=== PATIENT | male | born 1965 | race Caucasian/White ===

== ENCOUNTER 2017-05-31 16:36 | Inpatient (IN) ==
[2017-05-31] MEDS ORDERED: NS 1,000 ML ONE (17:18)
[2017-05-31 17:22] LABS: HEMATOCRIT 56.5 % (42.0-52.0); HEMOGLOBIN 19.9 g/dL (14.0-18.0); IMM GRAN# 0.05 X1000 (0.0-0.04); IMM GRAN% 0.2 % (0.0-0.5); LYMPH# 0.88 X1000 (1.2-3.4); LYMPH% 4.1 % (20.5-51.1); MANUAL DIFF NEEDED? YES; MCH 28.5 PG (27-31); MCHC 35.2 g/dL (33-37); MCV 80.9 FL (81-99); MONO# 1.39 X1000 (0.11-0.59); MONO% 6.4 % (1.7-9.3); NEUT% 89.3 % (42.2-75.2); PLT 375 X1000 (130-400); RBC 6.98 XMIL (4.7-6.1)
[2017-05-31] MEDS ORDERED: NS 1,000 ML IV ONE (17:22)
[2017-05-31 17:42] LABS: URINE CULTURE NEEDED? NO; URINE MICRO REVIEW NEEDED? NO; URINE SOURCE CLEAN CATCH
[2017-05-31 17:45] LABS: LYMPHS 3 % (21-51); MONO 1 % (1-9)
[2017-05-31 17:45] LABS: BILIRUBIN URINE NEGATIVE (NEGATIVE); BLOOD URINE NEGATIVE (NEGATIVE); COLOR YELLOW; GLUCOSE URINE >1000 mg/dL (NEGATIVE); LEUKOCYTES URINE NEGATIVE (NEGATIVE); NITRITE URINE NEGATIVE (NEGATIVE); PH URINE 5.5; PROTEIN URINE TRACE mg/dL (NEGATIVE); SP GRAVITY URINE 1.026; TURBIDITY URINE CLEAR (CLEAR); UR EPITHELIAL CELLS <10 /HPF (<10); URINE BACTERIA NEGATIVE /HPF; URINE RBC <10 /HPF (<10); URINE WBC <10 /HPF (<10); UROBILINOGEN URINE NORMAL (NORMAL)
[2017-05-31] MEDS ORDERED: NS 2,500 ML IV ONE (17:54)
[2017-05-31 17:56] LABS: UR AMPHETAMINES QUAL NONE DETECTED (NONE DETECT); UR BARBITUATES QUAL NONE DETECTED (NONE DETECT); UR BENZODIAZEPIN QUAL NONE DETECTED (NONE DETECT); UR CANNABINOIDS QUAL NONE DETECTED (NONE DETECT); UR COCAINE QUAL NONE DETECTED (NONE DETECT); UR METHADONE QUAL NONE DETECTED (NONE DETECT); UR OPIATES QUAL NONE DETECTED (NONE DETECT); UR OXYCODONE QUAL PRESUMPTIVE POSITIVE (NONE DETECT); UR PCP QUAL NONE DETECTED (NONE DETECT)
[2017-05-31] MEDS ORDERED: ZOSYN 3.375 GM in NS 50 ML IV ONE (17:56)
[2017-05-31 17:58] LABS: AGAP 32; ALBUMIN 4.2 g/dL (3.5-5.0); ALKALINE PHOSPHATASE 108 U/L (32-122); BUN 57 mg/dL (8-22); CALCIUM 9.4 mg/dL (8.8-10.2); CHLORIDE 81 mmol/L (98-107); COSMO 302; GOT 10 U/L (10-34); GPT 12 U/L (10-44); POTASSIUM 3.8 mmol/L (3.5-5.1); SODIUM 129 mmol/L (136-145); TCO2 16 mmol/L (25-35); TOTAL BILIRUBIN 0.74 mg/dL (0.20-1.00); TOTAL PROTEIN 8.5 g/dL (6.3-8.3)
[2017-05-31 18:11] LABS: ACETONE SERUM SMALL (NEGATIVE)
[2017-05-31] MEDS ORDERED: HUMULIN R IV ONE (18:18)
[2017-05-31 18:44] LABS: INR 0.98; PROTIME 10.3 Seconds (9.2-11.7); PTT 26.2 Seconds (22.0-36.0)
[2017-05-31] MEDS ORDERED: MORPHINE IV PRN (18:45)
[2017-05-31] MEDS ORDERED: ZOFRAN IV ONE (18:46)
[2017-05-31] MEDS ORDERED: HUMULIN R 100 UNIT in NS 99 ML IV ONE (19:00)
[2017-05-31] MEDS ORDERED: MORPHINE ONE (19:47)
[2017-05-31 19:54] LABS: ALLEN TEST YES; BE -5.5 mmoll (-3.0-3.0); BLOOD TYPE ARTERIAL; DRAW SITE R RADIAL; METHB 1.2 % (0.0-1.5); O2(CT) 25.6 mL/dL (15.0-23.0); PCO2(98.6) 29 mmHg (35-45); PO2(98.6) 93 mmHg (60-100); SAMPLE BLOOD; SAO2 98.2 % (95.0-100.0); THB 19.1 g/dL (11.5-17.4); pH(98.6) 7.39 (7.35-7.45)
[2017-05-31 19:55] LABS: MODALITY CANNULA
--- NOTE | 2017-05-31 20:15 | Diag Imaging Result Doc PS360 ---
EXAM: ABDOMEN FLAT/UPRIGHT HISTORY: possible ileus TECHNIQUE: Two views COMPARISON: 09/24/2016 FINDINGS: No free air beneath the diaphragm. There is air and stool throughout the colon. The colon is not distended. Questionable minimally distended loops of small bowel in the lower abdomen. No organomegaly. Mild scoliosis with degenerative spine changes. No foreign body. No abnormal calcifications. IMPRESSION: 1.Constipation 2.Questionable ileus Electronically signed by Nikita Trinidad 05/31/2017 8:13 PM
[2017-05-31] MEDS ORDERED: NS 250 ML IV ONE (21:43)
[2017-05-31 21:57] LABS: AGAP 22; BUN 51 mg/dL (8-22); CALCIUM 8.1 mg/dL (8.8-10.2); CHLORIDE 96 mmol/L (98-107); COSMO 296; POTASSIUM 3.7 mmol/L (3.5-5.1); SODIUM 135 mmol/L (136-145); TCO2 17 mmol/L (25-35)
[2017-05-31] MEDS: HUMULIN R 100 UNIT in NS 99 ML IV SCH (22:14)
[2017-05-31 22:16] LABS: MAGNESIUM 2.7 mg/dL (1.5-2.7)
[2017-05-31 22:27] LABS: HEMOGLOBIN A1C 13.3 % (4.8-6.0)
[2017-05-31] MEDS ORDERED: COMPAZINE PR PRN (23:22)
[2017-05-31] MEDS ORDERED: ZOFRAN PO PRN (23:22)
[2017-05-31] MEDS ORDERED: TYLENOL PR PRN (23:22)
[2017-05-31] MEDS ORDERED: SODIUM PHOSPHATE 30 MMOL in D5W 250 ML IV PRN (23:22)
[2017-05-31] MEDS ORDERED: TYLENOL PO PRN (23:22)
[2017-05-31] MEDS ORDERED: D50W SYRINGE IV PRN (23:22)
[2017-05-31] MEDS ORDERED: COMPAZINE IV PRN (23:22)
[2017-05-31] MEDS ORDERED: MAGNESIUM SULFATE 2 GM/S.W.I. 2 GM/50 ML IVPB IV PRN (23:22)
[2017-05-31] MEDS ORDERED: COMPAZINE PO PRN (23:22)
[2017-06-01] MEDS: PROTONIX IV SCH ×3 (00:02→23:14)
[2017-06-01] MEDS: SODIUM CHLORIDE 0.9% INJ SCH ×3 (00:02→23:15)
[2017-06-01] MEDS: HUMULIN R 100 UNIT in NS 99 ML IV SCH (00:02)
[2017-06-01] MEDS: NS 1,000 ML IV SCH ×7 (00:03→21:00)
[2017-06-01] MEDS: D5 1/2 NS + KCL 20 MEQ 1,000 ML IV SCH ×3 (00:26→22:22)
[2017-06-01] MEDS ORDERED: MORPHINE IV ONE (01:08)
[2017-06-01] MEDS ORDERED: FLUZONE QUAD 2017-2018 SYRINGE IM ONE (01:58)
[2017-06-01] MEDS: LOVENOX SUBQ SCH (02:05)
[2017-06-01 03:56] LABS: AGAP 17; BUN 36 mg/dL (8-22); CALCIUM 7.9 mg/dL (8.8-10.2); CHLORIDE 100 mmol/L (98-107); COSMO 293; MAGNESIUM 2.1 mg/dL (1.5-2.7); POTASSIUM 3.3 mmol/L (3.5-5.1); SODIUM 137 mmol/L (136-145); TCO2 20 mmol/L (25-35)
[2017-06-01] MEDS ORDERED: KLOR-CON PO ONE ×3 (04:51→05:15)
--- NOTE | 2017-06-01 06:13 | EKG Report ---
Test Performed on : 05/31/2017 4:41:58 PM Test Reason : No Order in [place] Blood Pressure : / mmHG Vent. Rate : 130 BPM Atrial Rate : 130 BPM P-R Int : 140 ms QRS Dur : 082 ms QT Int : 304 ms P-R-T Axes : 023 014 058 degrees QTc Int : 447 ms Sinus tachycardia. Possible Left atrial enlargement Borderline ECG When compared with ECG of 31-MAY-2017 16:39, (Unconfirmed) Non-specific change in ST segment in Inferior leads Unconfirmed Result
[2017-06-01 09:51] LABS: AGAP 15; BUN 30 mg/dL (8-22); CALCIUM 7.8 mg/dL (8.8-10.2); CHLORIDE 100 mmol/L (98-107); COSMO 286; MAGNESIUM 2.1 mg/dL (1.5-2.7); POTASSIUM 4.1 mmol/L (3.5-5.1); SODIUM 135 mmol/L (136-145); TCO2 20 mmol/L (25-35)
[2017-06-01 16:28] LABS: AGAP 15; BUN 26 mg/dL (8-22); CALCIUM 8.4 mg/dL (8.8-10.2); CHLORIDE 99 mmol/L (98-107); COSMO 286; MAGNESIUM 2.2 mg/dL (1.5-2.7); SODIUM 137 mmol/L (136-145); TCO2 23 mmol/L (25-35)
[2017-06-01] MEDS: ZOFRAN IV PRN (19:55)
[2017-06-01] MEDS: NORCO-7.5 PO SCH (22:08)
[2017-06-01 22:25] LABS: AGAP 11; BUN 21 mg/dL (8-22); CALCIUM 7.7 mg/dL (8.8-10.2); CHLORIDE 103 mmol/L (98-107); COSMO 289; POTASSIUM 3.7 mmol/L (3.5-5.1); SODIUM 139 mmol/L (136-145); TCO2 25 mmol/L (25-35)
[2017-06-02] MEDS: ZOFRAN IV PRN ×2 (00:56→15:08)
[2017-06-02] MEDS: LOVENOX SUBQ SCH (00:56)
[2017-06-02] MEDS: NS 1,000 ML IV SCH ×2 (01:51→05:56)
[2017-06-02] MEDS: D5 1/2 NS + KCL 20 MEQ 1,000 ML IV SCH (03:12)
[2017-06-02] MEDS ORDERED: APRESOLINE IV SCH (03:45)
[2017-06-02] MEDS: APRESOLINE IV PRN ×2 (03:57→17:06)
[2017-06-02 04:17] LABS: AGAP 8; BUN 16 mg/dL (8-22); CALCIUM 7.5 mg/dL (8.8-10.2); CHLORIDE 102 mmol/L (98-107); COSMO 276; MAGNESIUM 1.9 mg/dL (1.5-2.7); POTASSIUM 3.7 mmol/L (3.5-5.1); SODIUM 134 mmol/L (136-145); TCO2 24 mmol/L (25-35)
[2017-06-02] MEDS: HUMULIN R 100 UNIT in NS 99 ML IV SCH (04:23)
[2017-06-02] MEDS ORDERED: LANTUS SUBQ ONE (07:31)
[2017-06-02] MEDS: PRINIVIL PO SCH (08:29)
[2017-06-02] MEDS: NORCO-7.5 PO SCH ×2 (08:29→20:18)
[2017-06-02 09:57] LABS: AGAP 11; BUN 13 mg/dL (8-22); CALCIUM 7.7 mg/dL (8.8-10.2); CHLORIDE 98 mmol/L (98-107); COSMO 277; MAGNESIUM 1.8 mg/dL (1.5-2.7); POTASSIUM 3.4 mmol/L (3.5-5.1); SODIUM 136 mmol/L (136-145); TCO2 27 mmol/L (25-35)
[2017-06-02] MEDS: HUMALOG SUBQ SCH ×3 (12:33→20:19)
[2017-06-02] MEDS ORDERED: AMBIEN PO SCH (21:00)
[2017-06-02] MEDS: PROTONIX IV SCH ×2 (22:11→22:32)
[2017-06-02] MEDS: SODIUM CHLORIDE 0.9% INJ SCH ×2 (22:11→22:32)
[2017-06-03] MEDS: ZOFRAN IV PRN ×2 (01:45→07:46)
[2017-06-03] MEDS: APRESOLINE IV PRN (01:45)
[2017-06-03] MEDS: LOVENOX SUBQ SCH (04:42)
[2017-06-03 06:17] LABS: MANUAL DIFF NEEDED? NO
[2017-06-03 06:23] LABS: BASO% 0.2 % (0.0-0.8); EOS# 0.13 X1000 (0.0-0.7); EOS% 1.3 % (0.0-10.0); HEMATOCRIT 45.2 % (42.0-52.0); HEMOGLOBIN 16.1 g/dL (14.0-18.0); IMM GRAN# 0.03 X1000 (0.0-0.04); IMM GRAN% 0.3 % (0.0-0.5); LYMPH# 1.79 X1000 (1.2-3.4); LYMPH% 17.4 % (20.5-51.1); MCH 29.3 PG (27-31); MCHC 35.6 g/dL (33-37); MCV 82.2 FL (81-99); MONO# 0.81 X1000 (0.11-0.59); MONO% 7.9 % (1.7-9.3); MPV 9.5 FL (7.4-10.4); NEUT% 72.9 % (42.2-75.2); PLT 244 X1000 (130-400)
[2017-06-03] MEDS: HUMALOG SUBQ SCH ×2 (06:35→11:53)
[2017-06-03 06:40] LABS: AGAP 17; ALBUMIN 3.1 g/dL (3.5-5.0); ALKALINE PHOSPHATASE 71 U/L (32-122); BUN 12 mg/dL (8-22); CALCIUM 8.4 mg/dL (8.8-10.2); CHLORIDE 93 mmol/L (98-107); COSMO 277; GOT 21 U/L (10-34); GPT 19 U/L (10-44); SODIUM 134 mmol/L (136-145); TCO2 24 mmol/L (25-35); TOTAL BILIRUBIN 0.71 mg/dL (0.20-1.00); TOTAL PROTEIN 5.7 g/dL (6.3-8.3)
[2017-06-03 06:41] LABS: POTASSIUM 4.1 mmol/L (3.5-5.1)
[2017-06-03] MEDS: PRINIVIL PO SCH ×2 (07:46→09:37)
[2017-06-03] MEDS: FLOMAX PO SCH ×2 (07:47→09:37)
[2017-06-03] MEDS ORDERED: LANTUS SUBQ SCH (09:00)
[2017-06-03] MEDS: NORCO-7.5 PO SCH (09:49)
[2017-06-03 13:13] VITALS: BP 146/84
== END 2017-06-03 16:57 | disposition home or self-care (01) ==
LOC: ED 16:36 → SUATTDRO 21:34 → EDIPHOLD 21:34 → 3S 23:16 → 4N 06-02 17:31
PROVIDERS: ATTEND Internal Medicine

== ENCOUNTER 2019-06-29 12:03 | Inpatient (IN) ==
--- NOTE | 2019-06-29 12:13 | PROVIDER DOCUMENTATION ---
HPI-General Adult - General Stated Complaint: GENERAL WEAKNESS Time Seen by Provider: 06/29/19 12:11 Source: patient Allergies/Adverse Reactions: Patient Allergies Allergy/AdvReac Type Severity Reaction Status Date / Time No Known Allergies Allergy Verified 06/29/19 12:31 Home Medications: Home Medication List Medication Instructions Recorded Confirmed Last Taken Type LISINOpril [Prinivil] 40 mg PO DAILY #0 tablet 12/03/13 06/29/19 06/28/19 Rx Gabapentin 400 mg PO TID 07/11/15 06/29/19 06/29/19 History Glipizide 10 mg PO BID #60 tablet 08/24/15 06/29/19 06/24/19 Rx Zolpidem [Ambien] 10 mg PO QHS #30 tablet 08/14/16 06/29/19 06/24/19 Rx Tamsulosin [Flomax] 0.4 mg PO BID 09/25/16 06/29/19 06/24/19 History Hydrocodone/Acetaminophen [Fields 2 tab PO BID 01/31/17 06/29/19 06/28/19 History 7.5-325 Tablet] Ondansetron [Zofran] 4 mg PO Q6H PRN PRN 01/31/17 06/29/19 06/28/19 History Aspirin [Aspirin EC] 81 mg PO DAILY 06/29/19 06/29/19 06/29/19 History Bupropion HCl [Bupropion HCl Sr] 150 mg PO BID 06/29/19 06/29/19 06/28/19 History Fluoxetine HCl [Prozac] 20 mg PO QHS 06/29/19 06/29/19 06/28/19 History Insulin Glargine [Lantus] 30 unit SUBQ QAM 06/29/19 06/29/19 06/29/19 History - History of Present Illness -Gen Adult Nature of Presenting Problems: Pt. is 54 yom that presents with c/o N/V/D for 4 days. He reports he saw his PCP on Thursday and was given a phenergan shot. He reports he is no better and states he is diabetic. There are no other complaints at time of exam. Location of Pain/Injury: reports: abdomen. denies: none, head, face, mouth, neck, chest, upper extremity, hand(s), back, pelvis, genitalia, lower extremity, feet, upper body, lower body, generalized, other Pain Radiation: reports: no radiation. denies: arm(s), back, buttocks, chest, epigastric, feet, groin, jaw, flank (L), legs (lower), LLQ, LUQ, neck, periumbilical, flank (R), RLQ, RUQ, shoulder(s), scapula, scrotal, sternal notch, suprapubic, legs (upper), urethral, vaginal, other Quality of Pain: reports: aching. denies: cramping, pressure, sharp, tightness Severity: reports: mild. denies: moderate, severe Onset/Duration: reports: gradual, 4 days ago Timing: reports: still present. denies: improving, intermittent, getting worse Context/Activities at Onset: reports: none. denies: light activity, moderate activity, vigorous activity, recent emotional stress, recent physical stress, recent trauma history, possible bad food, cold exposure, eating, out of country travel, rest, sleep, sexual activity, other Modifying Factors: improves with: nothing Associated Symptoms: reports: diarrhea, nausea, vomiting. denies: denies symptoms, anxiety, arm pain, back/neck pain, chest pain, constipation, cough, diaphoresis, dizziness, EENT symptoms, fatigue, fever/chills, genitourinary problems, headaches, heartburn, joint pain, loss of appetite, malaise, muscle ac hes, sinus congestion/drainage, rash, seizure, shortness of breath, sensory/motor loss, pain with inspiration, swelling/mass in abdomen, syncope, weakness, trouble walking, other Similar Symptoms Previously?: Yes Recently seen or treated by another doctor?: Yes Review of Systems - Adult - REVIEW OF SYSTEMS - ADULT Constitutional: reports: no symptoms reported Eyes: reports: no symptoms reported Ears, Nose, Mouth & Throat: reports: no symptoms reported Cardiovascular: reports: no symptoms reported Respiratory: reports: no symptoms reported Gastrointestinal: reports: see HPI, abdominal pain, diarrhea, nausea, vomiting. denies: constipation, frequent heartburn, poor appetite Genitourinary: reports: no symptoms reported Musculoskeletal: reports: no symptoms reported Integumentary: reports: no symptoms reported Neurological: reports: no symptoms reported Psychiatric: reports: no symptoms reported Past History - Adult - PAST MEDICAL HISTORY-ADULT Review of Records: reports: Old Records Reviewed, Nursing Assessment Review, Medications Reviewed, Social history reviewed & non-contributory. Major Childhood Illnesses: reports: denies history Cardiovascular: reports: HTN Respiratory: reports: denies history Gastrointestinal: reports: GERD, other (recurrent vomiting episodes/ GASTROPARESIS) Obstetrical/Gynecological: reports: denies history Genitourinary: reports: denies history Musculoskeletal: reports: chronic pain (back) Neurological: reports: CVA Psychiatric: reports: depression, ptsd Endocrine/Immune: reports: Diabetes Other Conditions: reports: other cancer (skin) - PRIOR SURGERIES/PROCEDURES Surgical/Procedure History: reports: appendectomy, colonoscopy, other (artros copy rt shoulder) - IMMUNIZATION STATUS Childhood Immunizations: See Nurse Assessment Flu Vaccine: See Nurse Assessment - FAMILY HISTORY Family History: reviewed, not pertinent - SOCIAL HISTORY Smoking: denies Physical Exam-General - PHYSICAL EXAM-ADULT Initial Vital Signs Reviewed: Yes - CONSTITUTIONAL General Appearance: alert, no apparent distress. negative: anxious, slow to respond, obtunded, combative - EYES Eyes: PERRL/EOMI, pink conjunctivae - HEAD, EARS, NOSE, MOUTH & THROAT HENMT: normocephalic/atraumatic, moist mucous membranes - NECK Neck: non-tender, full range of motion, supple, normal inspection - RESPIRATORY Respiratory: lungs clear, normal breath sounds - CARDIOVASCULAR Cardiovascular: normal peripheral pulses, regular rate, rhythm - GASTROINTESTINAL (ABDOMEN) Abdominal Exam: soft, abnormal bowel sounds (hyperactive), tenderness. negative: distended, guarding, rigid, rebound, hernia, mass - LYMPHATIC Lymphatic: no adenopathy - MUSCULOSKELETAL Back Exam: normal inspection, no CVA tenderness, no vertebral tenderness Extremity: normal range of motion, non-tender, normal inspection Peripheral Pulses: radial (R): 2+, radial (L): 2+ - SKIN Integumentary: normal color, normal turgor, warm/dry. negative: cyanosis, erythema, swelling - NEUROLOGIC Neurologic: grossly normal, no motor/sensory deficits - PSYCHIATRIC Psych/Mental Status: normal mood/affect, normal thought content, normal thought process, oriented x 3. negative: anxious, paranoid, tearful Progress - PLAN OF CARE/RESULTS Progress/Plan/Lab Results: Laboratory Tests 06/29/19 06/29/19 06/29/19 12:50 12:50 14:05 WBC 11.10 H RBC 7.28 H Hgb 21.9 H* Hct 62.3 H MCV 85.6 MCH 30.1 MCHC 35.2 RDW Std Deviation 13.1 Plt Count 339 MPV 9.1 Immature Gran % (Auto) 0.3 Neut % (Auto) 68.4 Lymph % (Auto) 21.2 Stearns % (Auto) 9.6 H Eos % (Auto) 0.4 Baso % (Auto) 0.1 Immature Gran # (Auto) 0.03 Neut # (Auto) 7.60 H Lymph # (Auto) 2.35 Stearns # (Auto) 1.07 H Eos # (Auto) 0.04 Baso # (Auto) 0.01 Sodium 130 L Potassium 3.8 Chloride 83 L Carbon Dioxide 30 Anion Gap 17 BUN 53 H Creatinine 2.3 H Estimated GFR/1.73 m2 30 BUN/Creatinine Ratio 23 Glucose 155 H Calculated Osmolality 278 Calcium 9.2 Total Bilirubin 1.37 H AST 20 ALT 14 Alkaline Phosphatase 72 Creatine Kinase 116 Troponin T Total Protein 7.7 Albumin 4.5 Globulin 3.2 Albumin/Globulin Ratio 1.4 Lipase 9 L Urine Source CLEAN CATCH Urine Color YELLOW Urine Turbidity HAZY Urine pH 5.5 Ur Specific [place] 1.029 Urine Protein 30 A Ur Glucose (Stick) TRACE Ur Ketones (Stick) 10 A Urine Blood NEGATIVE Urine Nitrite NEGATIVE Urine Bilirubin SMALL A Urobilinogen Dipstick 2 A Urine Leukocytes NEGATIVE Urine WBC (Auto) <10 Urine RBC (Auto) <10 U Epithel Cells (Auto) <10 Urine Bacteria (Auto) NEGATIVE Urine Crystals Not Reportable Small Round Cells Not Reportable Urine Casts NONE SEEN Urine Yeast-like Cells Not Reportable Urine Opiates Screen Ur Oxycodone Screen Ur Methadone, Qual Acetaminophen Ur Barbiturates Screen Ur Phencyclidine Scrn Ur Amphetamines Screen U Benzodiazepines Scrn Urine Cocaine Screen U Cannabinoids Screen Acetone Level NEGATIVE 06/29/19 06/29/19 06/29/19 14:05 14:05 14:05 WBC RBC Hgb Hct MCV MCH MCHC RDW Std Deviation Plt Count MPV Immature Gran % (Auto) Neut % (Auto) Lymph % (Auto) Stearns % (Auto) Eos % (Auto) Baso % (Auto) Immature Gran # (Auto) Neut # (Auto) Lymph # (Auto) Stearns # (Auto) Eos # (Auto) Baso # (Auto) Sodium Potassium Chloride Carbon Dioxide Anion Gap BUN Creatinine Estimated GFR/1.73 m2 BUN/Creatinine Ratio Glucose Calculated Osmolality Calcium Total Bilirubin AST ALT Alkaline Phosphatase Creatine Kinase Troponin T < 0.010 Total Protein Albumin Globulin Albumin/Globulin Ratio Lipase Urine Source Urine Color Urine Turbidity Urine pH Ur Specific [place] Urine Protein Ur Glucose (Stick) Ur Ketones (Stick) Urine Blood Urine Nitrite Urine Bilirubin Urobilinogen Dipstick Urine Leukocytes Urine WBC (Auto) Urine RBC (Auto) U Epithel Cells (Auto) Urine Bacteria (Auto) Urine Crystals Small Round Cells Urine Casts Urine Yeast-like Cells Urine Opiates Screen PRESUMPTIVE POSITIVE A Ur Oxycodone Screen PRESUMPTIVE POSITIVE A Ur Methadone, Qual NONE DETECTED Acetaminophen 4.7 L Ur Barbiturates Screen NONE DETECTED Ur Phencyclidine Scrn NONE DETECTED Ur Amphetamines Screen NONE DETECTED U Benzodiazepines Scrn NONE DETECTED Urine Cocaine Screen NONE DETECTED U Cannabinoids Screen NONE DETECTED Acetone Level Discussed results and plan of care with patient. Patient agrees with plan and verbalizes understanding. Result Diagrams: 06/29/19 12:50 06/29/19 12:50 - XRAY 1 XRAY Study: Chest, Abdomen ([facility] - [address] [place] [address] [address] [place] [address] [id number] [place] [address] [address] [place] [address] Department of Imaging Patient: [facility] Date: 06/29/19MR#: [id number] : 1965ADM Status: PRE ERAcct#: [id number] Age/Sex: 54/MRoom/Bed: Loc: ED Ordering Physician: Yesy Murillo Family Physician: Dimas Cramer MD Reason for Procedure: abd pain Signed FLAT/UPRIGHT ABD/1 VIEW CHEST - 06/29/2019 INDICATION: abd pain TECHNIQUE: COMPARISON: 05/31/2017 FINDINGS: The chest is clear. There is a nonobstructive bowel gas pattern. No free air or abnormal calcifications. IMPRESSION: Negative exam. E lectronically signed by Trell Thomas 06/29/2019 1:34 PM 06/29/19 1334 Interpreting Physician: Trell Thomas MD Dictated Date/Time: 06/29/19 1334 cc: Yesy Murillo; Dimas Cramer MD) XRAY Interpretation: See note - CONSULTS/PCP/HOSPITALIST Notification #1 *Consult/PCP/Hospitalist*: Radha Gonzalez Time Discussed: 15:29 Reason/Comments: Admission Consult Disposition: Will see in ED, Admit Departure - Departure Date of Disposition Decision: 06/29/19 Time of Disposition Decision: 15:13 DIAGNOSIS: Hyponatremia, Substance abuse Acute renal failure Qualifiers: Acute renal failure type: unspecified Qualified Code(s): N17.9 - Acute kidney failure, unspecified Nausea & vomiting Qualifiers: Vomiting type: unspecified Vomiting Intractability: unspecified Qualified Code(s): R11.2 - Nausea with vomiting, unspecified Hyperglycemia due to type 2 diabetes mellitus Qualifiers: Diabetes mellitus terminal gauger insulin use: unspecified terminal gauger insulin use status Qualified Code(s): E11.65 - Type 2 diabetes mellitus with hyperglycemia Hypotension Qualifiers: Hypotension type: unspecified hypotension type Qualified Code(s): I95.9 - Hypotension, unspecified Disposition: ADMITTED INPATIENT 09 Certified Medical Emergency: Emergent Condition: Stable Referrals and Follow-Ups: Dimas Cramer MD [Primary Care Provider] - - Critical Care Note This patient required my direct & personal management of CC.: Yes Total Time (mins): 35 Critical Care Statement: This patient required my direct personal management to treat or rule out processes, the absence of which, could potentiallly result in sudden, clinically significant life or limb threatening deterioration. Attestation - Physician/ SWATHI Attestation Patient care was provided by Advanced Practice Provider:: Yes Advanced Practice Provider:: Yesy Murillo Advanced Practice Provider documentation review:: The Mid-level provider documentation, treatment plan and medical decision making was reviewed by the physician who agrees with all treatment and medical decision making by the MLP. The physician spent face to face time with patient:: No Advanced Practice Provider documentation review:: Supervising physician onsite and consulted in the evaluation and care of this patient. The physician did not have a face to face encounter with the patient.
[2019-06-29 13:25] LABS: ACETONE SERUM NEGATIVE (NEGATIVE)
[2019-06-29 13:30] LABS: ESTIMATED GFR 30
[2019-06-29 13:31] LABS: AGAP 17; ALB/GLOB RATIO 1.4; ALBUMIN 4.5 g/dL (3.5-5.0); ALKALINE PHOSPHATASE 72 U/L (32-122); BUN 53 mg/dL (8-22); CALCIUM 9.2 mg/dL (8.8-10.2); CHLORIDE 83 mmol/L (98-107); CK PROFILE 116 U/L (24-204); COSMO 278; CREATININE 2.3 mg/dL (0.7-1.2); GLUCOSE 155 mg/dL (70-104); GOT 20 U/L (10-34); GPT 14 U/L (10-44); LIPASE 9 U/L (13-60); POTASSIUM 3.8 mmol/L (3.5-5.1); SODIUM 130 mmol/L (136-145); TCO2 30 mmol/L (25-35); TOTAL BILIRUBIN 1.37 mg/dL (0.20-1.00); TOTAL PROTEIN 7.7 g/dL (6.3-8.3)
--- NOTE | 2019-06-29 13:36 | Diag Imaging Result Doc PS360 ---
FLAT/UPRIGHT ABD/1 VIEW CHEST - 06/29/2019 INDICATION: abd pain TECHNIQUE: COMPARISON: 05/31/2017 FINDINGS: The chest is clear. There is a nonobstructive bowel gas pattern. No free air or abnormal calcifications. IMPRESSION: Negative exam. Electronically signed by Trell Thomas 06/29/2019 1:34 PM
[2019-06-29] MEDS ORDERED: ZOFRAN IV ONE (13:39)
[2019-06-29] MEDS ORDERED: NS 1,000 ML IV ONE ×2 (13:39→16:19)
[2019-06-29 14:16] LABS: URINE SOURCE CLEAN CATCH
[2019-06-29 14:19] LABS: BASO# 0.01 X1000 (0.0-0.2); BASO% 0.1 % (0.0-0.8); EOS# 0.04 X1000 (0.0-0.7); EOS% 0.4 % (0.0-10.0); HEMATOCRIT 62.3 % (42.0-52.0); IMM GRAN# 0.03 X1000 (0.0-0.04); IMM GRAN% 0.3 % (0.0-0.5); LYMPH# 2.35 X1000 (1.2-3.4); LYMPH% 21.2 % (20.5-51.1); MCH 30.1 PG (27-31); MCHC 35.2 g/dL (33-37); MCV 85.6 FL (81-99); MONO# 1.07 X1000 (0.11-0.59); MONO% 9.6 % (1.7-9.3); MPV 9.1 FL (7.4-10.4); NEUT% 68.4 % (42.2-75.2); PLT 339 X1000 (130-400); RBC 7.28 XMIL (4.7-6.1); RDW 13.1 % (11.5-14.5)
[2019-06-29 14:21] LABS: HEMOGLOBIN 21.9 g/dL (14.0-18.0)
[2019-06-29 14:34] LABS: BILIRUBIN URINE SMALL (NEGATIVE); BLOOD URINE NEGATIVE (NEGATIVE); COLOR YELLOW; GLUCOSE URINE TRACE mg/dL (NEGATIVE); KETONE URINE 10 mg/dL (NEGATIVE); LEUKOCYTES URINE NEGATIVE (NEGATIVE); NITRITE URINE NEGATIVE (NEGATIVE); PH URINE 5.5; PROTEIN URINE 30 mg/dL (NEGATIVE); SP GRAVITY URINE 1.029; TURBIDITY URINE HAZY (CLEAR); UROBILINOGEN URINE 2 mg/dL (NORMAL)
[2019-06-29 14:39] LABS: UR EPITHELIAL CELLS <10 /HPF (<10); URINE BACTERIA NEGATIVE /HPF; URINE RBC <10 /HPF (<10); URINE WBC <10 /HPF (<10)
[2019-06-29 14:51] LABS: URINE CASTS NONE SEEN
[2019-06-29 14:52] LABS: UR AMPHETAMINES QUAL NONE DETECTED (NONE DETECT); UR BARBITUATES QUAL NONE DETECTED (NONE DETECT); UR BENZODIAZEPIN QUAL NONE DETECTED (NONE DETECT); UR CANNABINOIDS QUAL NONE DETECTED (NONE DETECT); UR COCAINE QUAL NONE DETECTED (NONE DETECT); UR METHADONE QUAL NONE DETECTED (NONE DETECT); UR OPIATES QUAL PRESUMPTIVE POSITIVE (NONE DETECT); UR OXYCODONE QUAL PRESUMPTIVE POSITIVE (NONE DETECT); UR PCP QUAL NONE DETECTED (NONE DETECT)
[2019-06-29] MEDS ORDERED: TYLENOL PO PRN (16:19)
[2019-06-29] MEDS: HUMALOG SUBQ SCH ×2 (18:32→21:53)
--- NOTE | 2019-06-29 20:57 | HISTORY AND PHYSICAL ---
PRIMARY CARE PROVIDER: Dr. Dimas Cramer. CHIEF COMPLAINT: Nausea, vomiting, diarrhea x4 days. HISTORY OF PRESENT ILLNESS: Mr. Castillo is a 54-year-old male, with a past medical history of type 2 diabetes insulin dependent, GERD, hypertension, CVA, who reported to the ED with 4 days of nausea, vomiting, and diarrhea. He has not been able to eat or drink in 4 days. He went to see his PCP on Thursday and was given a shot of Nubain and Phenergan. He felt okay for 4 hours and then has not been able to hold anything down. He denies being around any sick contacts. He reports that this happens to him every 6 hours. He denies any fevers, but he is having chills. No chest pain. No shortness of breath. He is having some abdominal discomfort. He states it is not cramps; it is just a sharp pain, and he grabs his lower abdomen. Workup in the ED revealed severe dehydration and hemoglobin and hematocrit of 21 and 62, sodium 130, BUN 53, a creatinine of 2.3, total bilirubin 1.37. He was positive for opiates. Per ED report, the patient buys his opiates off the street. He does not have opiates listed on his home medications off his pharmacy report. He will be admitted to the medical telemetry floor. He given 1 L fluid bolus. We will go ahead with a second liter and place him on a rate of IV fluids and recheck his laboratory data in the a.m., and continue with antiemetics, and check stool studies. PAST MEDICAL HISTORY: 1. Diabetes mellitus, insulin dependent. 2. CVA, residual right-sided weakness. 3. Opiate abuse. Per ED report, he buys them off the street. 4. Tobacco abuse. 5. Hypertension. 6. Gastroesophageal reflux disease. 7. Enlarged prostate. 8. PTSD. 9. Lip cancer. PAST SURGICAL HISTORY: 1. Appendectomy. 2. Bilateral shoulder surgery. 3. Arthroscopic surgery on his knee. SOCIAL HISTORY: History of opiate abuse. He buys his opiates off the street. He continues to smoke. FAMILY HISTORY: Denies any heart disease, cancer, diabetes in first-degree relatives. ALLERGIES: No known drug allergies. MEDICATIONS: Home medications are being reconciled. PHYSICAL EXAMINATION: VITAL SIGNS: Temperature is 98.1 degrees, heart rate 89, respirations 19. Initial blood pressure was 82/54. Blood pressure after fluids 103/80. O2 is 96% on room air. GENERAL: Mr. Castillo is a 54-year-old gentleman who is lying on the stretcher, drinking Sprite, in no acute distress. HEENT: Atraumatic, normocephalic. PERRL. NECK: Supple. Trachea midline. Mucous membranes are dry. CARDIOVASCULAR: S1, S2 appreciated. No murmurs, gallops, rubs noted. RESPIRATORY: Lung sounds clear bilaterally. GI: Soft, nontender, nondistended. Positive bowel sounds 4 quads. EXTREMITIES: Lower extremities are negative for edema. No signs of clubbing or cyanosis. NEUROLOGIC: He does have some residual right-sided weakness. He is awake, alert, oriented and answers all questions appropriately. He is hard to understand secondary to not having all of his teeth in. DIAGNOSTIC DATA: Abdomen x-ray negative exam. LABORATORY DATA: White count 11, hemoglobin and hematocrit 21 and 62, platelet count is 339,000. Sodium 130, potassium 3.8, BUN 53, creatinine 2.3, blood glucose is 155, T bilirubin 1.37. Troponin less than 0.010. Urinalysis is negative for bacteria, negative for nitrates, positive for opiates and oxycodone. Acetaminophen level was 4.7. Acetone was negative. ASSESSMENT AND PLAN: 1. Severe dehydration, secondary to nausea, vomiting, and diarrhea. We will continue with aggressive intravenous hydration. He will receive a 2 L fluid bolus and continue with intravenous fluids. Will continue on a clear liquid diet. Will advance him tomorrow as tolerated. 2. Nausea, vomiting, diarrhea. We will continue with antiemetics. We will check stool studies with Clostridium difficile. He denies being on any recent antibiotics or around any sick contacts, as well as white blood cells, ova and parasites. Denies any recent food poisoning. 3. Mild hyponatremia. We will continue with intravenous hydration. 4. Acute renal failure, secondary to severe dehydration. We will continue with aggressive intravenous hydration. Recheck his BUN and creatinine in the morning. 5. Diabetes mellitus. We will place him on sliding scale and patterned blood sugars. Check hemoglobin A1c. 6. Hypertension. Was initially hypotensive secondary to dehydration. We will hold off on his lisinopril given his acute renal failure. 7. Previous cerebrovascular accident with residual right-sided weakness. Aware. 8. Opiate abuse. Per emergency department report, he buys his opiates off the street and is not prescribed any currently. 9. Further recommendations to follow physician evaluation, laboratory and diagnostic data. Dictated by PRAFUL Stubbs for Angelita Gonzalez MD cc: MD Dimas Forrest MD
[2019-06-29] MEDS: PROZAC PO SCH (21:53)
[2019-06-29] MEDS: NORCO-7.5 PO PRN (21:53)
[2019-06-29] MEDS: WELLBUTRIN SR PO SCH (21:53)
[2019-06-29] MEDS: AMBIEN PO SCH (21:53)
[2019-06-29] MEDS: ZOFRAN IV PRN (22:00)
[2019-06-30] MEDS: NS 1,000 ML IV SCH ×5 (02:13→20:43)
[2019-06-30 05:43] LABS: ALLEN TEST YES; BE 4.6 mmoll (-3.0-3.0); BLOOD TYPE ARTERIAL; HCO3-(ACT) 28.5 mmoll (20.0-26.0); METHB 0.2 % (0.0-1.5); O2(CT) 25.3 mL/dL (15.0-23.0); O2HB 97.1 % (95.0-99.0); PCO2(98.6) 33 mmHg (35-45); PO2(98.6) 164 mmHg (60-100); SAMPLE BLOOD; THB 18.4 g/dL (11.5-17.4); pH(98.6) 7.52 (7.35-7.45)
[2019-06-30 05:44] LABS: MODALITY ROOM AIR
[2019-06-30] MEDS: HUMALOG SUBQ SCH ×4 (06:04→20:45)
[2019-06-30 07:36] LABS: BASO# 0.01 X1000 (0.0-0.2); BASO% 0.1 % (0.0-0.8); EOS# 0.08 X1000 (0.0-0.7); EOS% 0.9 % (0.0-10.0); HEMOGLOBIN 19.2 g/dL (14.0-18.0); IMM GRAN# 0.03 X1000 (0.0-0.04); IMM GRAN% 0.3 % (0.0-0.5); LYMPH# 1.82 X1000 (1.2-3.4); LYMPH% 19.4 % (20.5-51.1); MCH 28.9 PG (27-31); MCHC 33.1 g/dL (33-37); MCV 87.3 FL (81-99); MONO# 0.95 X1000 (0.11-0.59); MONO% 10.1 % (1.7-9.3); MPV 9.3 FL (7.4-10.4); NEUT# 6.49 X1000 (1.4-6.5); NEUT% 69.2 % (42.2-75.2); PLT 307 X1000 (130-400); RBC 6.64 XMIL (4.7-6.1); RDW 12.3 % (11.5-14.5); WBC 9.38 X1000 (4.8-10.8)
[2019-06-30 07:42] LABS: HEMOGLOBIN A1C 9.5 % (4.8-6.0)
[2019-06-30 08:16] LABS: AGAP 16; ALB/GLOB RATIO 1.4; ALBUMIN 3.9 g/dL (3.5-5.0); ALKALINE PHOSPHATASE 67 U/L (32-122); BUN 40 mg/dL (8-22); CALCIUM 8.2 mg/dL (8.8-10.2); CHLORIDE 91 mmol/L (98-107); COSMO 284; CREATININE 1.2 mg/dL (0.7-1.2); ESTIMATED GFR > 60; GLUCOSE 136 mg/dL (70-104); GOT 20 U/L (10-34); GPT 16 U/L (10-44); MAGNESIUM 2.5 mg/dL (1.5-2.7); POTASSIUM 3.2 mmol/L (3.5-5.1); SODIUM 136 mmol/L (136-145); TCO2 29 mmol/L (25-35); TOTAL BILIRUBIN 1.58 mg/dL (0.20-1.00); TOTAL PROTEIN 6.7 g/dL (6.3-8.3)
[2019-06-30] MEDS ORDERED: KLOR-CON PO ONE (08:49)
[2019-06-30] MEDS: WELLBUTRIN SR PO SCH ×2 (08:50→20:44)
[2019-06-30] MEDS: ASPIRIN EC PO SCH (08:51)
[2019-06-30] MEDS: LANTUS INSULIN SUBQ SCH (08:53)
[2019-06-30] MEDS: ZOFRAN IV PRN ×2 (11:50→20:44)
[2019-06-30] MEDS: NORCO-7.5 PO PRN (12:11)
[2019-06-30] MEDS: DILAUDID IV PRN ×2 (14:38→20:45)
--- NOTE | 2019-06-30 17:09 | HEMO/ONC CONSULTATION ---
DATE: 06/30/2019 REASON FOR CONSULTATION: Evaluation of polycythemia. HISTORY OF PRESENT ILLNESS: Mr. Castillo is a 54-year-old male with a past history of type 2 diabetes, who reported to the ED with 4 days of nausea, vomiting, and diarrhea. He has not been able to eat or drink in 4 days. He denies any fever, but does have chills. No chest pain, shortness of breath. He does have some abdominal discomfort. His workup in the ED revealed an extremely elevated hemoglobin and hematocrit of 21.9 and 62.3. He was positive for opiates. He states that he buys his opiates off the street and does not have a current prescription. He was admitted to the hospital for further treatment regarding severe dehydration, nausea, vomiting, and hyperglycemia. PAST MEDICAL HISTORY: 1. Diabetes mellitus, insulin dependent. 2. CVA, right residual weakness. 3. Opiate abuse. 4. Tobacco abuse. 5. Hypertension. 6. GERD. 7. Enlarged prostate. 8. PTSD. 9. Lip cancer. PAST SURGICAL HISTORY: 1. Appendectomy. 2. Bilateral shoulder surgery. 3. Arthroscopic surgery on his knee. SOCIAL HISTORY: He has a history of opioid abuse. He buys them off the street. He smokes half a pack to a pack daily. He denies any alcohol use. ALLERGIES: No known drug allergies. HOME MEDICATIONS: Aspirin, bupropion, Prozac, gabapentin, glipizide, [place], Lantus, lisinopril, Zofran, Flomax, and Ambien. VITAL SIGNS: Temperature 98.3 degrees, pulse rate 92, respiratory rate 19, blood pressure 116/76, O2 saturation 93% on room air, 10/10 abdominal pain. PHYSICAL EXAMINATION: General: The patient appears in no acute distress. HEENT: Sclera is anicteric. PERRLA. Oral mucosa is normal. Cardiovascular: Normal S1, S2. Heart rate and rhythm normal. Respiratory: Lung sounds are clear to auscultation. Normal respiratory effort. Gastrointestinal: Tender to epigastric area. Otherwise soft, nondistended. Extremities: No lower extremity edema. Neurological: Awake, alert, and oriented. Answers questions appropriately. LABORATORY: WBC 9.38, hemoglobin 19.2, hematocrit 58.0, platelet count 307,000. Potassium 3.2, creatinine 1.2, magnesium 2.5, total bilirubin 1.58. RADIOLOGY: Abdominal x-ray shows negative exam. ASSESSMENT AND PLAN: 1. Polycythemia. We will evaluate several labs on the patient and follow up with those tomorrow. We will evaluate JAK2, erythropoietin, LDH, sedimentation rate, CRP. We have ordered a therapeutic phlebotomy of approximately 500 mL. The patient may need replacement IV fluids for the 500 mL. 2. Severe dehydration secondary to nausea, vomiting, diarrhea. Continue IV fluids and treatment per medical management. 3. Deep venous thrombosis prophylaxis. Continue the patient on aspirin. Allow him to get up several times per day to get out of bed. Dictated by PRAFUL Kruse for James Dykes MD cc: James Dykes MD MTDD
[2019-06-30] MEDS: AMBIEN PO SCH (20:43)
[2019-06-30] MEDS: PROZAC PO SCH (20:43)
[2019-07-01] MEDS: DILAUDID IV PRN ×3 (00:41→09:50)
--- NOTE | 2019-07-01 03:48 | PROGRESS NOTE ---
DATE: 06/30/2019 SUBJECTIVE: The patient is resting comfortably in bed. He complains of back pain. OBJECTIVE: Vital Signs: Temperature 98.3 degrees, blood pressure 116/76, heart rate 92, respirations 19, O2 saturation 93% on room air. General: This is a overweight male sitting at the edge of the bed, in no acute distress. Heart: S1, S2 normal. Tachycardic. Lungs: Clear to auscultation bilaterally. Abdomen: Positive bowel sounds. Soft, obese, nontender, nondistended. Extremities: No edema, no cyanosis. Neurologic: The patient is alert and oriented x3. LABS: Hemoglobin 19, hematocrit 58, platelets 307,000, white blood cell count 9.3. Sodium 136, potassium 3.2, chloride 91, CO2 29, BUN 40, creatinine 1.2, glucose 136, total bilirubin 1.5, AST 20, ALT 16, alkaline phosphatase 67. ASSESSMENT AND PLAN: 1. Polycythemia. The workup is in progress. The patient will undergo phlebotomy today as per Dr. Dykes. 2. Dehydration, improving. Continue with intravenous fluids. 3. Acute kidney injury, improved. Continue with intravenous fluids. 4. Hypokalemia. Will replace the patient's potassium. 5. Diabetes mellitus type 2. Continue on insulin sliding scale. 6. Obesity. Aware. cc: Angelita Gonzalez MD MTDD
[2019-07-01] MEDS: NS 1,000 ML IV SCH ×2 (05:38→11:25)
[2019-07-01] MEDS: ZOFRAN IV PRN (06:09)
[2019-07-01] MEDS: HUMALOG SUBQ SCH ×2 (06:12→12:09)
[2019-07-01 07:56] LABS: HEMOGLOBIN 16.2 g/dL (14.0-18.0); MCH 29.8 PG (27-31); MCHC 33.8 g/dL (33-37); MCV 88.4 FL (81-99); MPV 9.3 FL (7.4-10.4); RBC 5.43 XMIL (4.7-6.1); RDW 11.9 % (11.5-14.5); WBC 6.71 X1000 (4.8-10.8)
[2019-07-01 08:03] VITALS: BP 136/78
[2019-07-01 08:13] LABS: C REACTIVE PROT QUANT 1.28 mg/L (0.00-5.00)
[2019-07-01 08:20] LABS: AGAP 13; BUN 18 mg/dL (8-22); CALCIUM 8.2 mg/dL (8.8-10.2); CHLORIDE 96 mmol/L (98-107); COSMO 276; CREATININE 0.8 mg/dL (0.7-1.2); ESTIMATED GFR > 60; GLUCOSE 179 mg/dL (70-104); POTASSIUM 3.6 mmol/L (3.5-5.1); SODIUM 135 mmol/L (136-145); TCO2 26 mmol/L (25-35)
[2019-07-01] MEDS: ASPIRIN EC PO SCH (09:50)
[2019-07-01] MEDS: WELLBUTRIN SR PO SCH (09:50)
[2019-07-01] MEDS: LANTUS INSULIN SUBQ SCH (09:50)
--- NOTE | 2019-07-01 11:15 | HEMO/ONC PROGRESS NOTE ---
DATE: 07/01/2019 SUBJECTIVE: The patient is lying in bed, comfortable this morning. His only complaint is back pain. The patient states he is ready to go home. He tolerated his phlebotomy well yesterday. OBJECTIVE: Vital Signs: Temperature 98.3 degrees, pulse rate 71, respiratory rate 18, blood pressure 136/78, O2 saturation 99% on room air. The patient is in 4/10 back pain. General: The patient is in no acute distress. HEENT: Sclera is anicteric. PERRLA. Oral mucosa is normal. Cardiovascular: Normal S1, S2. Heart rate and rhythm are normal. Respiratory: Lung sounds are clear to auscultation. Normal respiratory effort. Gastrointestinal: Tender to the epigastric area. Otherwise, soft and nondistended. Extremities: No lower extremity edema noted. Neurological: Awake, alert, and oriented. Answers questions appropriately. LABORATORY DATA: WBC 6.71, hemoglobin 16.2, hematocrit 48, platelet count 263,000. Sedimentation rate 1. Creatinine 0.8, magnesium 2.5, total bilirubin 1.58, LDH 154. C- reactive protein 1.28. ASSESSMENT: 1. Polycythemia, etiology remains unknown at this time. We are continuing to await results from JAK2 mutation and erythropoietin. The patient underwent therapeutic phlebotomy yesterday. It was tolerated well. Had appropriately decreased his H H to 16.2 and 48. We may consider doing another one in a week or 2 on an outpatient basis. Ok for discharge from our standpoint. 2. Severe dehydration secondary to nausea, vomiting, and diarrhea. Continue to replete the patient's fluid and electrolytes per medical management. Continue to treat the patient's hyperglycemia in response to the nausea and vomiting. 3. Deep venous thrombosis prophylaxis. Continue the patient on aspirin. Allow him to get up several times per day at his own will. Dictated by PRAFUL Kruse for James Dykes MD cc: James Dykes MD [facility]
[2019-07-01] MEDS: NORCO-7.5 PO PRN (12:12)
== END 2019-07-01 12:27 | disposition home or self-care (01) | DRG 683 ==
LOC: SUPCPDRO → ED 12:03 → EDIPHOLD 15:53 → 3N 17:20
PROVIDERS: ATTEND Internal Medicine